=== PATIENT | male | born 1955 | race Caucasian/White ===

== ENCOUNTER 2017-05-14 09:18 | Emergency (ER) | payer OTHER ==
[~2017-05-14] VITALS: Ht 180.3 cm; Wt 111.2 kg
[2017-05-14 09:20] VITALS: BP 134/78; PULSE 61; RESP 18; TEMP 98.9; O2SAT 98
--- NOTE | 2017-05-14 09:38 | PD ---
HPI Chief Complaint: Medical Clearance Time Seen by Provider: 09:30 Travel History International Travel<30 days: No Contact w/Intl Traveler<30days: No Traveled to known affect area: No History of Present Illness HPI 61-year-old male is here for wound check. Patient status post defibrillator placement left upper chest 3 days ago. Patient was advised on discharge instruction removed Steri-Strip today. Patient denies any other problem. Patient has history of heart failure with reduced ejection fraction. Patient denies any chest pain or shortness of breath. Patient denies any fever chills. Surgery was done at the [facility] in [place]. [facility] Past Medical History Hx Anticoagulant Therapy: Yes Cardiovascular Problems: Yes Social History Tobacco Use: No Allergies-Medications (Allergen,Severity, Reaction): Coded Allergies: No Known Allergies (Verified Allergy, Unknown, 05/14/17) Review of Systems General / Constitutional: No: Fever Eyes: No: Visual changes HENT: No: Headaches Cardiovascular: No: Chest Pain or Discomfort Respiratory: No: Shortness of Breath Gastrointestinal: No: Abdominal Pain Genitourinary: No: Dysuria Musculoskeletal: No: Pain Skin: No Rash Neurologic: No: Weakness Psychiatric: No: Depression Endocrine: No: Polydipsia Hematologic/Lymphatic: No: Easy Bruising Physical Exam Narrative GENERAL: Well-nourished, well-developed patient. SKIN: Focused skin assessment warm/dry. HEAD: Normocephalic. EYES: No scleral icterus. No injection or drainage. NECK: Supple, trachea midline. No JVD or lymphadenopathy. CARDIOVASCULAR: Regular rate and rhythm without murmurs, gallops, or rubs. RESPIRATORY: Breath sounds equal bilaterally. No accessory muscle use. GASTROINTESTINAL: Abdomen soft, non-tender, nondistended. MUSCULOSKELETAL: No cyanosis, or edema. BACK: Nontender without obvious deformity. No CVA tenderness. Patient has Steri-Strips in place at the surgical wound for the defibrillator placement left upper chest. The wound is clean and dry. No discharge no bleeding. No evidence of infection. Data Data Last Documented VS Vital Signs Date Time Temp Pulse Resp B/P (MAP) Pulse Ox O2 Delivery O2 Flow Rate FiO2 05/14/17 09:58 05/14/17 09:20 98.9 61 18 98 Orders Orders Ed Discharge Order (05/14/17 09:38) MDM Medical Decision Making Medical Screen Exam Complete: Yes Emergency Medical Condition: Yes Differential Diagnosis Differential diagnosis including wound check. Narrative Course 61-year-old male is here for wound check. Status post defibrillator placement 3 days ago. The wounds healing appropriately. No evidence of infection. Steri -Strip in place. Advised patient to leave the Steri-Strips in place and follow- up with personal physician. Diagnosis Primary Impression: Visit for wound check Patient Instructions: General Instructions Additional Instructions: Keep the wound clean and dry. Follow-up with personal physician. Med/Other Pt SpecificInfo: No Change to Meds Disposition: 01 DISCHARGE HOME Condition: Stable Omar Blair MD May 14, 2017 09:38
== END 2017-05-14 10:00 | disposition home or self-care (01) ==
LOC: NEPD 09:18
DX: Z48.01 Encounter for change or removal of surgical wound dressing (principal); Z95.810 Presence of automatic (implantable) cardiac defibrillator; Z79.01 Long term (current) use of anticoagulants
CPT/HCPCS: 99281

== ENCOUNTER 2017-08-18 06:49 | Observation (INO) | payer OTHER ==
[~2017-08-18] VITALS: Ht 180.3 cm; Wt 101.0 kg
[2017-08-18 06:51] VITALS: BP 135/71; PULSE 81; RESP 22; TEMP 97.6; O2SAT 99
[2017-08-18 07:27] VITALS: PULSE 60; RESP 18; O2SAT 98
[2017-08-18 07:28] VITALS: BP 115/70; PULSE 75; RESP 18; O2SAT 98
[2017-08-18] MEDS ORDERED: SODIUM CHLOR 0.9% 1000 ML INJ 1,000 ML IV ONE (07:30)
[2017-08-18] MEDS ORDERED: SODIUM CHLORIDE 0.9% FLUSH 10 ML FLUSH IVF PRN (07:30)
[2017-08-18] MEDS ORDERED: DILTIAZEM HCL 25 MG/5 ML VIAL IV ONE (07:30)
[2017-08-18] MEDS ORDERED: methylPREDNISolone SOD SUCC 125 MG/2 ML VIAL IV PUSH ONE (07:30)
[2017-08-18] MEDS: RESP: ALBUTEROL 2.5 MG/IPRATROPIUM 0.5 MG NEB (SCH) INH (07:32)
[2017-08-18 07:58] LABS: BASOPHIL % 0.3 % (0.0-2.0); HEMATOCRIT 47.6 % (39.0-51.0); HEMOGLOBIN 16.4 GM/DL (13.0-17.0); LYMPH % 15.4 % (9.0-44.0); MEAN CELL VOLUME 92.5 FL (80.0-100.0); MEAN CORPUSCULAR HEMOGLOBIN 31.9 PG (27.0-34.0); MEAN CORPUSCULAR HGB CONC 34.5 % (32.0-36.0); MEAN PLATELET VOLUME 9.6 FL (7.0-11.0); MONO % 9.7 % (0.0-8.0); MONOCYTE # 0.6 TH/MM3 (0-0.9); NEUT % 74.6 % (16.0-70.0); PLATELET COUNT 197 TH/MM3 (150-450); RED BLOOD COUNT 5.15 MIL/MM3 (4.50-5.90); RED CELL DISTRIBUTION WIDTH 13.5 % (11.6-17.2); WHITE BLOOD COUNT 6.6 TH/MM3 (4.0-11.0)
--- NOTE | 2017-08-18 08:00 | PD ---
HPI Chief Complaint: Cold / Flu Symptoms Time Seen by Provider: 07:17 Travel History International Travel<30 days: No Contact w/Intl Traveler<30days: No Traveled to known affect area: No History of Present Illness HPI 62 y/o male notes she's been having cough, congestion, diarrhea and feeling short of breath over the past 2 days. He states he felt worse so he elected to come in. He feels worse when he moves around. He denies other specific modifying factors. He states he tried his breathing treatments without improvement. He states he is also feeling weak but denies any other concurrent complaints. Quality is productive. Severity is progressive. He denies specific sick contacts. PFSH Past Medical History Hx Anticoagulant Therapy: Yes (PRADAXA ) Atrial Fibrillation: Yes Cardiovascular Problems: Yes Congestive Heart Failure: Yes COPD: Yes Pneumonia: Yes Past Surgical History Abdominal Surgery: Yes (HERNIA) Pacemaker: Yes (DEFIB) Other Surgery: Yes (VOCAL CORDS) Social History Alcohol Use: Yes (RARE ) Tobacco Use: No Substance Use: No Allergies-Medications (Allergen,Severity, Reaction): Coded Allergies: No Known Allergies (Verified Allergy, Unknown, 08/18/17) Reported Meds & Prescriptions Reported Meds & Active Scripts Active Active Prescriptions or Reported Medications Unobtainable Review of Systems Except as stated in HPI: all other systems reviewed are Neg Physical Exam Narrative GENERAL: 62-year-old male who feel short of breath SKIN: Focused skin assessment warm/dry. HEAD: Atraumatic. Normocephalic. EYES: Pupils equal and round. No scleral icterus. No injection or drainage. ENT: Rhinorrhea noted. Mucous membranes pink and moist. NECK: Trachea midline. CARDIOVASCULAR: irregular rate and rhythm. RESPIRATORY: Decreased aeration bilaterally. GASTROINTESTINAL: Abdomen soft, non-tender, nondistended. MUSCULOSKELETAL: No obvious deformities. No clubbing. No cyanosis. No edema. NEUROLOGICAL: Awake and alert. No obvious cranial nerve deficits. Motor grossly within normal limits. Normal speech. Data Data Last Documented VS Vital Signs Date Time Temp Pulse Resp B/P (MAP) Pulse Ox O2 Delivery O2 Flow Rate FiO2 08/18/17 07:28 75 18 115/70 (85) 98 Room Air 08/18/17 06:51 97.6 Orders Orders Electrocardiogram (08/18/17 ) Complete Blood Count With Diff (08/18/17 07:22) Prothrombin Time / Inr (Pt) (08/18/17 07:22) Act Partial Throm Time (Ptt) (08/18/17 07:22) Lactic Acid Sepsis Protocol (08/18/17 07:22) Magnesium (Mg) (08/18/17 07:22) Influenzae A/B Antigen (08/18/17 07:22) Chest, Pa & Lat (08/18/17 07:22) Ecg Monitoring (08/18/17 07:22) Iv Access Insert/Monitor (08/18/17 07:22) Oximetry (08/18/17 07:22) Basic Metabolic Panel (Bmp) (08/18/17 07:22) B-Type Natriuretic Peptide (08/18/17 07:22) Sodium Chloride 0.9% Flush (Ns Flush) (08/18/17 07:30) Methylprednisolone So Succ Inj (Solumedr (08/18/17 07:30) Albuterol-Ipratropium Neb (Duoneb Neb) (08/18/17 07:30) Diltiazem Inj (Cardizem Inj) (08/18/17 07:30) Sodium Chlor 0.9% 1000 Ml Inj (Ns 1000 M (08/18/17 07:30) Blood Culture (08/18/17 07:22) Ckmb (Isoenzyme) Profile (08/18/17 07:26) Troponin I (08/18/17 07:26) CKMB (08/18/17 07:38) CKMB% (08/18/17 07:38) Oseltamivir (Tamiflu) (08/18/17 09:00) Admit Order (Ed Use Only) (08/18/17 09:27) Labs Laboratory Tests Test 08/18/17 07:38 White Blood Count 6.6 TH/MM3 Red Blood Count 5.15 MIL/MM3 Hemoglobin 16.4 GM/DL Hematocrit 47.6 % Mean Corpuscular Volume 92.5 FL Mean Corpuscular Hemoglobin 31.9 PG Mean Corpuscular Hemoglobin Concent 34.5 % Red Cell Distribution Width 13.5 % Platelet Count 197 TH/MM3 Mean Platelet Volume 9.6 FL Neutrophils (%) (Auto) 74.6 % Lymphocytes (%) (Auto) 15.4 % Monocytes (%) (Auto) 9.7 % Eosinophils (%) (Auto) 0.0 % Basophils (%) (Auto) 0.3 % Neutrophils # (Auto) 5.0 TH/MM3 Lymphocytes # (Auto) 1.0 TH/MM3 Monocytes # (Auto) 0.6 TH/MM3 Eosinophils # (Auto) 0.0 TH/MM3 Basophils # (Auto) 0.0 TH/MM3 CBC Comment DIFF FINAL Differential Comment Prothrombin Time 12.0 SEC Prothromb Time International Ratio 1.2 RATIO Activated Partial Thromboplast Time 47.4 SEC Blood Urea Nitrogen 13 MG/DL Creatinine 1.23 MG/DL Random Glucose 126 MG/DL Calcium Level 8.8 MG/DL Magnesium Level 1.8 MG/DL Sodium Level 135 MEQ/L Potassium Level 4.2 MEQ/L Chloride Level 102 MEQ/L Carbon Dioxide Level 20.8 MEQ/L Anion Gap 12 MEQ/L Estimat Glomerular Filtration Rate 60 ML/MIN Lactic Acid Level 1.9 mmol/L Total Creatine Kinase 296 U/L Creatine Kinase MB 1.5 NG/ML Troponin I LESS THAN 0.02 NG/ML B-Type Natriuretic Peptide 165 PG/ML MDM Medical Decision Making Medical Screen Exam Complete: Yes Emergency Medical Condition: Yes Medical Record Reviewed: Yes (past history confirmed) Interpretation(s) CBC & BMP Diagram 08/18/17 07:38 Calcium Level 8.8, Magnesium Level 1.8 Last 24 hours Impressions Chest X-Ray 08/18/17 0722 Signed Impressions: Service Date/Time: Friday, August 18, 2017 08:12 - CONCLUSION: No acute disease. Chris Esquivel MD flu A positive Differential Diagnosis COPD, pneumonia, influenza, anemia, A. fib with RVR..... Narrative Course Will check blood work, EKG, chest x-ray and dose with IV fluids and low-dose Cardizem given EKG with heart rate in the 140s Patient's heart rate improved after 1 small dose of Cardizem. Workup reveals influenza a and given duration of symptoms and comorbidities, he'll be given Tamiflu. He agrees to admission in the hospital for monitoring of his heart rate in symptoms. Physician Communication Physician Communication dr mckeon agrees to admit, requests 4 [place] [facility] Diagnosis Primary Impression: Influenza A Additional Impression: Atrial fibrillation with RVR Admitting Information Admitting Physician Requests: Observation Scripts Unable to Obtain Active Prescriptions or Reported Meds Juli Garcia MD 23, 2018 08:00
[2017-08-18 08:10] LABS: INTERNATIONAL NORMALIZED RATIO 1.2 RATIO
[2017-08-18 08:18] LABS: BICARBONATE 20.8 MEQ/L (21.0-32.0); CALCIUM 8.8 MG/DL (8.5-10.1); CREATININE 1.23 MG/DL (0.60-1.30); MAGNESIUM 1.8 MG/DL (1.5-2.5)
[2017-08-18 08:20] LABS: TROPONIN I LESS THAN 0.02 NG/ML (0.02-0.05)
--- NOTE | 2017-08-18 08:32 | RADRPT ---
EXAM DATE/TIME: 08/18/2017 08:12 [place] COMPARISON: No previous studies available for comparison. INDICATIONS : Chest tightness with shortness of breath, lightheaded, cough, and general weakness. MEDICAL HISTORY : Congestive heart failure. Lyme disease. Atrial fibrillation. Pneumonia. SURGICAL HISTORY : Pacemaker. ENCOUNTER: Initial ACUITY: 2 days PAIN SCORE: 0/10 LOCATION: Bilateral chest FINDINGS: PA and lateral views of the chest demonstrate the lungs to be symmetrically aerated without evidence of mass, infiltrate or effusion. There is a left-sided defibrillator with single intact lead. The car diomediastinal contours are unremarkable. Osseous structures are intact. CONCLUSION: No acute disease. Chris Esquivel MD on August 18, 2017 at 8:28 Board Certified Radiologist. This report was verified electronically.
[2017-08-18] MEDS ORDERED: OSELTAMIVIR PHOSPHATE 75 MG CAP PO ONE (09:00)
[2017-08-18] MEDS ORDERED: SENNOSIDES 8.6 MG TAB PO PRN (09:30)
[2017-08-18] MEDS ORDERED: NALOXONE HCL 0.4 MG/ML AMP IV PUSH PRN (09:30)
[2017-08-18] MEDS ORDERED: MAGNESIUM HYDROXIDE SUSP 30 ML CUP PO PRN (09:30)
[2017-08-18] MEDS ORDERED: BISACODYL 10 MG SUPP RECTAL PRN (09:30)
[2017-08-18] MEDS ORDERED: ONDANSETRON HCL 4 MG/2 ML VIAL IVP PRN (09:30)
[2017-08-18] MEDS ORDERED: LACTULOSE SYRUP 20 GM/30 ML CUP PO PRN (09:30)
[2017-08-18] MEDS ORDERED: SODIUM CHLORIDE 0.9% FLUSH 10 ML FLUSH IV FLUSH PRN (09:30)
[2017-08-18 13:05] VITALS: BP 134/62; PULSE 101; RESP 18; O2SAT 94
--- NOTE | 2017-08-18 17:17 | HHI.HP ---
HPI [facility] Primary Care Physician [facility] Admission Diagnosis influenza A, A. fib with RVR Diagnoses: Chief Complaint: cough, fever, myalgias Travel History International Travel<30 Days: No Contact w/Intl Traveler <30 Da: No Traveled to Known Affected Are: No History of Present Illness Written by Ermelinda Burnett, acting as scribe for Dr. Davila on 08/18/17 at 17:15. 62-year-old male with history of atrial fibrillation on Pradaxa, CHF unknown EF s/p AICD, COPD, presents with 2 day history of multiple complaints including cough, fevers/chills, myalgias, and palpitations. The patient reports over the past 2 days he has felt like he had the flu. He reports subjective fevers, chills, diaphoresis, and sweats. He has had nonproductive dry cough. He reports diarrhea all night long last night. He has not been able to eat in 3 days with lack of appetite. Denies nausea/vomiting or abdominal pain. Reports diffuse generalized weakness and myalgias. He reports palpitations and states his heart felt like it was pumping a lot harder than usual. Denies any specific chest pains or shortness of breath. He has felt faint and lightheaded, but denies any syncope. He has history of COPD, denies any recent wheezing. He states he wanted to come to the hospital earlier but he was too weak to drive yesterday. He did get his flu shot this year. Upon arrival to the ER, he was found to be influenza A positive. EKG showed afib with RVR HR 140s and he was given IV Cardizem 10mg x1 with good response. 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 Of note, patient does not have his medications with him and is unsure of his doses. He is able to recall that he takes metoprolol, Pradaxa, statin, "water pill", and is not sure of the rest of his medications. Review of Systems Except as stated in HPI: all other systems reviewed are Neg Past Family Social History Past Medical History atrial fibrillation on Pradaxa CHF unknown EF s/p AICD COPD hyperlipidemia Past Surgical History hernia repair AICD placement vocal cord surgery Reported Medications Patient does not have his medications with him and is unsure of his doses. He is able to recall that he takes metoprolol, Pradaxa, statin, "water pill", and is not sure of the rest of his medications. Allergies: Coded Allergies: No Known Allergies (Verified Allergy, Unknown, 08/18/17) Active Ordered Medications Current Medications Medications (Trade) Dose Ordered Sig/Tj Route Start Time Stop Time Status Last Admin (NS Flush) 2 ml UNSCH PRN IV FLUSH 08/18/17 09:30 (NS Flush) 2 ml BID IV FLUSH 08/18/17 21:00 (Zofran Inj) 4 mg Q6H PRN IVP 08/18/17 09:30 (Narcan Inj) 0.4 mg UNSCH PRN IV PUSH 08/18/17 09:30 (Diamond-Colace) 1 tab BID PO 08/18/17 21:00 (Milk Of Magnesia Liq) 30 ml Q12H PRN PO 08/18/17 09:30 (Senokot) 17.2 mg Q12H PRN PO 08/18/17 09:30 (Dulcolax Supp) 10 mg DAILY PRN RECTAL 08/18/17 09:30 (Lactulose Liq) 30 ml DAILY PRN PO 08/18/17 09:30 (Tamiflu) 75 mg BID PO 08/18/17 21:00 (Pradaxa) 150 mg BID PO 08/18/17 21:00 UNV Family History Mother with diabetes Father with lung cancer Social History Very rare alcohol use Denies any tobacco use Denies any illicit drug use 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 SKIN: Warm and dry. No rash. HEAD: Normocephalic. Atraumatic. EYES: Pupils equal and round. No scleral icterus. No injection or drainage. ENT: No nasal bleeding or discharge. Mucous membranes pink and moist. NECK: Supple. Trachea midline. CARDIOVASCULAR: Regular rate and rhythm. S1, S2 noted. No murmur appreciated. RESPIRATORY: No accessory muscle use. Slightly distant breath sounds otherwise clear to auscultation, no wheezing/crackles. Breath sounds equal bilaterally. GASTROINTESTINAL: Abdomen soft, non-tender, nondistended. Normoactive bowel sounds x4. MUSCULOSKELETAL: No obvious deformities. Extremities without clubbing, cyanosis , or edema. NEUROLOGICAL: Awake and alert. No obvious cranial nerve deficits. Motor grossly within normal limits. Normal speech. PSYCHIATRIC: Appropriate mood and affect; insight and judgment normal. Laboratory Laboratory Tests Test 08/18/17 07:38 White Blood Count 6.6 Red Blood Count 5.15 Hemoglobin 16.4 Hematocrit 47.6 Mean Corpuscular Volume 92.5 Mean Corpuscular Hemoglobin 31.9 Mean Corpuscular Hemoglobin Concent 34.5 Red Cell Distribution Width 13.5 Platelet Count 197 Mean Platelet Volume 9.6 Neutrophils (%) (Auto) 74.6 Lymphocytes (%) (Auto) 15.4 Monocytes (%) (Auto) 9.7 Eosinophils (%) (Auto) 0.0 Basophils (%) (Auto) 0.3 Neutrophils # (Auto) 5.0 Lymphocytes # (Auto) 1.0 Monocytes # (Auto) 0.6 Eosinophils # (Auto) 0.0 Basophils # (Auto) 0.0 CBC Comment DIFF FINAL Differential Comment Prothrombin Time 12.0 Prothromb Time International Ratio 1.2 Activated Partial Thromboplast Time 47.4 Blood Urea Nitrogen 13 Creatinine 1.23 Random Glucose 126 Calcium Level 8.8 Magnesium Level 1.8 Sodium Level 135 Potassium Level 4.2 Chloride Level 102 Carbon Dioxide Level 20.8 Anion Gap 12 Estimat Glomerular Filtration Rate 60 Lactic Acid Level 1.9 Total Creatine Kinase 296 Creatine Kinase MB 1.5 Troponin I LESS THAN 0.02 B-Type Natriuretic Peptide 165 Date/Time Source Procedure Growth Status 08/18/17 07:38 Blood Peripheral Aerobic Blood Culture Pending Received 08/18/17 07:38 Blood Peripheral Anaerobic Blood Culture Pending Received 08/18/17 07:38 Nasal Aspirate Influenza Types A,B Antigen (MELONIE) - Final Positive For Flu A Antigen Complete Result Diagram: 08/18/1773708/18/17737 Imaging Last Impressions Chest X-Ray 08/18/17721 Signed Impressions: Service Date/Time: Friday, August 18, 2017 08:12 - CONCLUSION: No acute disease. MD Sina York VTE Risk Assessment Sina VTE Risk Assessment: Mod/High Risk (score >= 2) Caprini Risk Assessment Model Point Value = 1 Point Value = 2 Point Value = 3 Point Value = 5 Age 41-60 Minor surgery BMI > 25 kg/m2 Swollen legs Varicose veins or History of unexplained or recurrent spontaneous Oral contraceptives or hormone replacement Sepsis (< 1 month) Serious lung disease, including pneumonia (< 1 month) Abnormal pulmonary function Acute myocardial infarction Congestive heart failure (< 1 month) History of inflammatory bowel disease Medical patient at bed rest Age 61-74 Arthroscopic surgery Major open surgery (> 45 min) Laparoscopic surgery (> 45 min) Malignancy Confined to bed (> 72 hours) Immobilizing plaster cast Central venous access Age >= 75 History of VTE Family history of VTE Factor V Leiden Prothrombin [id number] Lupus anticoagulant Anticardiolipin antibodies Elevated serum homocysteine Heparin-induced thrombocytopenia Other congenital or acquired thrombophilia Stroke (< 1 month) Elective arthroplasty Hip, pelvis, or leg fracture Acute spinal cord injury (< 1 month) Prophylaxis Regimen Total Risk Factor Score Risk Level Prophylaxis Regimen 0-1 Low Early ambulation 2 Moderate Order ONE of the following: *Sequential Compression Device (SCD) *Heparin 5000 units SQ BID 3-4 Higher Order ONE of the following medications: *Heparin 5000 units SQ TID *Enoxaparin/Lovenox 40 mg SQ daily (WT < 150 kg, CrCl > 30 mL/min) *Enoxaparin/Lovenox 30 mg SQ daily (WT < 150 kg, CrCl > 10-29 mL/min) *Enoxaparin/Lovenox 30 mg SQ BID (WT < 150 kg, CrCl > 30 mL/min) AND/OR *Sequential Compression Device (SCD) 5 or more Highest Order ONE of the following medications: *Heparin 5000 units SQ TID (Preferred with Epidurals) *Enoxaparin/Lovenox 40 mg SQ daily (WT < 150 kg, CrCl > 30 mL/min) *Enoxaparin/Lovenox 30 mg SQ daily (WT < 150 kg, CrCl > 10-29 mL/min) *Enoxaparin/Lovenox 30 mg SQ BID (WT < 150 kg, CrCl > 30 mL/min) AND *Sequential Compression Device (SCD) Assessment and Plan Problem List: (1) Influenza A ICD Code: J10.1 - Influenza due to other identified influenza virus with other respiratory manifestations Status: Acute (2) Atrial fibrillation with RVR ICD Code: I48.91 - Unspecified atrial fibrillation Status: Acute Assessment and Plan 62-year-old male with history of atrial fibrillation on Pradaxa, CHF unknown EF s/p AICD, COPD, presents with 2 day history of multiple complaints including cough, fevers/chills, myalgias, and palpitations. Upon arrival to the ER, he was found to be influenza A positive. EKG showed afib with RVR HR 140s and he was given IV Cardizem 10mg x1 with good response. 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 Of note, patient does not have his medications with him and is unsure of his doses. He is able to recall that he takes metoprolol, Pradaxa, statin, "water pill", and is not sure of the rest of his medications. Influenza A: patient with +cough, myalgias, congestion, subjective fevers/ chills. Influenza A positive. -Started on Tamiflu 75mg po bid x5days -Supportive treatment with Tylenol prn, Robitussin prn -Monitor CBC -Monitor for improvement Atrial Fibrillation with RVR: HR in 140 on EKG upon arrival. Likely exacerbated by flu. S/p IV Cardizem 10mg x1, with good response. -patient reportedly takes metoprolol at home, unknown dose, will start metoprolol 50mg bid for now with hold parameters -continue patient's Pradaxa 150mg bid -monitor on telemetry -check echocardiogram DENISE: Cr 1.2, unknown baseline. Likely component of dehydration with recent diarrhea and poor oral intake. -with hx of CHF, will hold off on IVF for now, encourage oral intake -avoid nephrotoxins -repeat BMP in am CHF: reported by patient, unknown EF however patient does have AICD. -will hold off on restarting diuretic, does not appear to be in fluid overload -continue BB -unknown if patient on CYNTHIA at home, however BP currently soft, consider starting CYNTHIA in next 1-2 days when renal function improves if BP stable -continue statin -monitor on telemetry -checking echo as above COPD: chronic, does not wear oxygen or have nebulizer at home. No wheezing on exam however patient felt much improved s/p duoneb. -duonebs q4h prn -O2 if needed DVT Prophylaxis: on Pradaxa This note was transcribed by maday Burnett. I, Dr. Prema Davila personally performed the history, physical exam, and medical decision making; and confirmed the accuracy of the information in the transcribed note. Authenticated by Dr. Prema Davila on 08/18/17 at 17:15. Code Status Full Code Discussed Condition With Patient, ER Ermelinda Flores PA-C Aug 18, 2017 17:17 Prema Davila MD Aug 19, 2017 17:59
[2017-08-18 18:00] VITALS: BP 123/67; PULSE 84; RESP 20; TEMP 97.4; O2SAT 96
[2017-08-18] MEDS ORDERED: DILTIAZEM HCL 30 MG TAB PO SCH (18:00)
[2017-08-18 18:43] LABS: TOTAL BILIRUBIN ADULT 0.9 MG/DL (0.2-1.0); TOTAL PROTEIN 8.3 GM/DL (6.4-8.2)
[2017-08-18 18:47] LABS: ALBUMIN 4.1 GM/DL (3.4-5.0); DIRECT BILIRUBIN ADULT 0.1 MG/DL (0.0-0.2); INDIRECT BILIRUBIN 0.8 MG/DL (0.0-0.8)
[2017-08-18 20:00] VITALS: BP 123/78; PULSE 138; PULSE 68; RESP 21; TEMP 97.6; O2SAT 97
[2017-08-18] MEDS: DABIGATRAN ETEXILATE 150 MG CAP PO SCH (20:20)
[2017-08-18] MEDS: guaiFENesin/DEXTROMETHORPHAN 200 MG/20 MG/10 ML CUP PO PRN (20:20)
[2017-08-18] MEDS: METOPROLOL TARTRATE 50 MG TAB PO SCH (20:20)
[2017-08-18] MEDS: ATORVASTATIN 20 MG TAB PO SCH (20:20)
[2017-08-18] MEDS: SODIUM CHLORIDE 0.9% FLUSH 10 ML FLUSH IV FLUSH SCH (20:21)
[2017-08-18] MEDS: DOCUSATE SODIUM 50 MG/SENNA 8.6 MG TAB PO SCH (20:21)
--- NOTE | 2017-08-18 20:32 | EKG ---
Date Performed: 08/18/2017 Time Performed: 07:08:58 PTAGE: 62 years EKG: ATRIAL FIBRILLATION WITH RAPID VENTRICULAR RESPONSE INDETERMINATE AXIS ABNORMAL ECG NO PREVIOUS TRACING DOCTOR: Reji Fajardo Interpretating Date/Time 08/18/2017 20:31:09
[2017-08-18] MEDS: RESP: ALBUTEROL 2.5 MG/IPRATROPIUM 0.5 MG NEB (PRN) NEB (20:37)
[2017-08-18] MEDS: OSELTAMIVIR PHOSPHATE 75 MG CAP PO SCH (22:38)
[2017-08-19] VITALS (7 sets, daily range): BP systolic 100–144; BP diastolic 68–84; PULSE 55–145; RESP 18–20; TEMP 97.4–98.3; O2SAT 95–97
[2017-08-19] MEDS: guaiFENesin/DEXTROMETHORPHAN 200 MG/20 MG/10 ML CUP PO PRN ×2 (00:20→09:52)
[2017-08-19] MEDS: RESP: ALBUTEROL 2.5 MG/IPRATROPIUM 0.5 MG NEB (PRN) NEB (00:46)
[2017-08-19] MEDS: DABIGATRAN ETEXILATE 150 MG CAP PO SCH ×2 (09:00→21:00)
[2017-08-19] MEDS: DOCUSATE SODIUM 50 MG/SENNA 8.6 MG TAB PO SCH ×2 (09:52→21:00)
[2017-08-19] MEDS: OSELTAMIVIR PHOSPHATE 75 MG CAP PO SCH ×2 (09:53→21:00)
[2017-08-19] MEDS: METOPROLOL TARTRATE 50 MG TAB PO SCH ×2 (09:53→21:00)
[2017-08-19] MEDS: SODIUM CHLORIDE 0.9% FLUSH 10 ML FLUSH IV FLUSH SCH ×2 (09:54→21:00)
[2017-08-19 10:05] LABS: AUTOMATED NEUTROPHIL # 8.5 TH/MM3 (1.8-7.7); BASOPHIL % 0.1 % (0.0-2.0); HEMATOCRIT 46.6 % (39.0-51.0); HEMOGLOBIN 16.1 GM/DL (13.0-17.0); LYMPH % 8.5 % (9.0-44.0); LYMPHOCYTE # 0.9 TH/MM3 (1.0-4.8); MEAN CELL VOLUME 92.6 FL (80.0-100.0); MEAN CORPUSCULAR HGB CONC 34.6 % (32.0-36.0); MONOCYTE # 0.7 TH/MM3 (0-0.9); NEUT % 84.4 % (16.0-70.0); PLATELET COUNT 193 TH/MM3 (150-450); RED BLOOD COUNT 5.04 MIL/MM3 (4.50-5.90); RED CELL DISTRIBUTION WIDTH 13.3 % (11.6-17.2)
[2017-08-19 10:23] LABS: BICARBONATE 19.9 MEQ/L (21.0-32.0); CALCIUM 8.9 MG/DL (8.5-10.1); CREATININE 0.97 MG/DL (0.60-1.30)
[2017-08-19 11:14] LABS: CHOLESTEROL/ HDL RATIO 3.77 RATIO
[2017-08-19] MEDS ORDERED: OSEL75 PO (12:33)
[2017-08-19] MEDS ORDERED: PRAD150C PO (12:33)
[2017-08-19] MEDS ORDERED: DEXT10SY2 PO (12:33)
[2017-08-19] MEDS ORDERED: METO-309 PO (12:33)
[2017-08-19] MEDS ORDERED: ATOR20TA15 PO (12:33)
--- NOTE | 2017-08-19 12:34 | HHI.DCPOC ---
Discharge Care Plan Diagnosis: (1) Influenza A (2) Atrial fibrillation with RVR Goals to Promote Your Health * To prevent worsening of your condition and complications * To maintain your health at the optimal level Directions to Meet Your Goals Take your medications as prescribed Follow your dietary instruction Follow activity as directed Keep your appointments as scheduled Take your immunizations and boosters as scheduled If your symptoms worsen call your PCP, if no PCP go to Urgent Care Center or Emergency Room Smoking is Dangerous to Your Health. Avoid second hand smoke Call the 24-hour hour crisis hotline for domestic abuse at Kevin Alaniz MD Aug 19, 2017 12:34
[2017-08-19] MEDS ORDERED: DILTIAZEM HCL 60 MG TAB PO ONE (12:45)
--- NOTE | 2017-08-19 12:48 | HHI.PR ---
Subjective Remarks Patient feels very tired and weak. Denies cp/sob. Feels palpitations Objective Vitals Vital Signs Date Time Temp Pulse Resp B/P (MAP) Pulse Ox O2 Delivery O2 Flow Rate FiO2 08/19/17 12:00 97.7 79 20 117/84 (95) 97 08/19/17 08:00 97.4 87 20 119/84 (96) 96 08/19/17 04:00 121 08/19/17 04:00 98.1 76 19 110/75 (87) 97 08/19/17 00:00 97.7 55 20 109/80 (90) 95 08/19/17 00:00 88 08/18/17 20:00 97.6 68 21 123/78 (93) 97 08/18/17 20:00 Room Air 08/18/17 20:00 138 08/18/17 18:00 97.4 84 20 123/67 (85) 96 08/18/17 17:35 08/18/17 13:05 101 18 134/62 (86) 94 Room Air I/O 08/18/17 08/18/17 08/18/17 08/19/17 08/19/17 08/19/17 07:00 15:00 23:00 07:00 15:00 23:00 Intake Total 1000 ml 480 ml Balance 1000 ml 480 ml Intake Oral 480 ml IV Total 1000 ml # Voids 2 Result Diagram: 08/19/17 0803 08/19/17 0803 Imaging Last Impressions Chest X-Ray 08/18/17 0722 Signed Impressions: Service Date/Time: Friday, August 18, 2017 08:12 - CONCLUSION: No acute disease. Chris Esquivel MD Objective Remarks AAOx3 nad s1S2 irregularly irregular, tachycardic, no MRG Clear lungs Bl no edema in extremities no JVD Medications and IVs Current Medications Medications (Trade) Dose Ordered Sig/Tj Route Start Time Stop Time Status Last Admin (NS Flush) 2 ml UNSCH PRN IV FLUSH 08/18/17 09:30 (NS Flush) 2 ml BID IV FLUSH 08/18/17 21:00 08/19/17 09:54 (Zofran Inj) 4 mg Q6H PRN IVP 08/18/17 09:30 (Narcan Inj) 0.4 mg UNSCH PRN IV PUSH 08/18/17 09:30 (Diamond-Colace) 1 tab BID PO 08/18/17 21:00 08/19/17 09:52 (Milk Of Magnesia Liq) 30 ml Q12H PRN PO 08/18/17 09:30 (Senokot) 17.2 mg Q12H PRN PO 08/18/17 09:30 (Dulcolax Supp) 10 mg DAILY PRN RECTAL 08/18/17 09:30 (Lactulose Liq) 30 ml DAILY PRN PO 08/18/17 09:30 (Tamiflu) 75 mg BID PO 08/18/17 21:00 08/19/17 09:53 (Pradaxa) 150 mg BID PO 08/18/17 21:00 08/19/17 09:00 (Robitussin Dm 200-20 Mg/10 ml Liq) 10 ml Q4H PRN PO 08/18/17 17:45 08/19/17 09:52 (Lopressor) 50 mg Q12HR PO 08/18/17 21:00 08/19/17 09:53 (Lipitor) 20 mg HS PO 08/18/17 21:00 08/18/17 20:20 (Duoneb Neb) 1 ampule Q4HR NEB PRN NEB 08/18/17 18:00 08/19/17 00:46 A/P Problem List: (1) Influenza A ICD Code: J10.1 - Influenza due to other identified influenza virus with other respiratory manifestations Status: Acute (2) Atrial fibrillation with RVR ICD Code: I48.91 - Unspecified atrial fibrillation Status: Acute Assessment and Plan 62-year-old male with history of atrial fibrillation on Pradaxa, CHF unknown EF s/p AICD, COPD, presents with 2 day history of multiple complaints including cough, fevers/chills, myalgias, and palpitations. Upon arrival to the ER, he was found to be influenza A positive. EKG showed afib with RVR HR 140s and he was given IV Cardizem 10mg x1 with good response. 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 Of note, patient does not have his medications with him and is unsure of his doses. He is able to recall that he takes metoprolol, Pradaxa, statin, "water pill", and is not sure of the rest of his medications. Influenza A: patient with +cough, myalgias, congestion, subjective fevers/ chills. Influenza A positive. -Supportive treatment with Tylenol prn, Robitussin prn -Monitor CBC -Monitor for improvement - 08/19 Continue Tamiflu for a total of 5 days. Supportive treatment as above. Atrial Fibrillation with RVR: HR in 140 on EKG upon arrival. Likely exacerbated by flu. S/p IV Cardizem 10mg x1, with good response. -continue patient's Pradaxa 150mg bid -monitor on telemetry -check echocardiogram -Troponin negative x1 -08/19 Patient still with A. fib with RVR with heart rate in the 150s. I will give 1 dose of 60 mg of p.o. Cardizem and start on Cardizem 30 mg p.o. every 6 hours. Consult cardiology. Check TSH and troponin. DENISE: Cr 1.2, unknown baseline. Likely component of dehydration with recent diarrhea and poor oral intake. -with hx of CHF, will hold off on IVF for now, encourage oral intake -avoid nephrotoxins -08/19 Creatinine down to 0.94. Likely DENISE which is resolving. Encourage po intake. CHF: reported by patient, unknown EF however patient does have AICD. -will hold off on restarting diuretic, does not appear to be in fluid overload -continue BB -unknown if patient on CYNTHIA at home, however BP currently soft, consider starting CYNTHIA in next 1-2 days when renal function improves if BP stable -continue statin -monitor on telemetry -checking echo as above COPD: chronic, does not wear oxygen or have nebulizer at home. No wheezing on exam however patient felt much improved s/p duoneb. -duonebs q4h prn -O2 if needed DVT Prophylaxis: on Pradaxa Discharge Planning Patient still with RVR. Cardio consulted. Kevin Alaniz MD Aug 19, 2017 12:48
[2017-08-19] MEDS: DILTIAZEM HCL 30 MG TAB PO SCH (17:40)
[2017-08-19 17:41] LABS: TROPONIN I LESS THAN 0.02 NG/ML (0.02-0.05)
[2017-08-19] MEDS: ATORVASTATIN 20 MG TAB PO SCH (21:00)
[2017-08-20] VITALS (7 sets, daily range): BP systolic 96–144; BP diastolic 56–83; PULSE 64–158; RESP 16–22; TEMP 97.6–98.3; O2SAT 93–96
[2017-08-20] MEDS: DILTIAZEM HCL 30 MG TAB PO SCH ×2 (06:13)
[2017-08-20] MEDS: DABIGATRAN ETEXILATE 150 MG CAP PO SCH ×2 (09:00→21:00)
[2017-08-20] MEDS: DOCUSATE SODIUM 50 MG/SENNA 8.6 MG TAB PO SCH ×2 (09:22→21:00)
[2017-08-20] MEDS: METOPROLOL TARTRATE 50 MG TAB PO SCH ×2 (09:22→21:12)
[2017-08-20] MEDS: OSELTAMIVIR PHOSPHATE 75 MG CAP PO SCH ×2 (09:23→21:12)
[2017-08-20] MEDS: guaiFENesin/DEXTROMETHORPHAN 200 MG/20 MG/10 ML CUP PO PRN ×2 (09:23→21:15)
[2017-08-20] MEDS: SODIUM CHLORIDE 0.9% FLUSH 10 ML FLUSH IV FLUSH SCH ×2 (09:25→21:11)
[2017-08-20] MEDS ORDERED: DILTIAZEM HCL 30 MG TAB PO ONE (10:15)
[2017-08-20] MEDS: RESP: ALBUTEROL 2.5 MG/IPRATROPIUM 0.5 MG NEB (PRN) NEB (10:21)
--- NOTE | 2017-08-20 11:07 | MB ---
cc: Antoine Rich MD DATE: 08/20/2017 REASON FOR CONSULTATION: Mild rapid atrial fibrillation. HISTORY OF PRESENT ILLNESS: The patient is a very pleasant 62-year-old gentleman with complex cardiac history including chronic atrial fibrillation, maintained on Pradaxa, as well as CHF and cardiomyopathy with AICD placement, and COPD, who presented with cough and shortness of breath and was found to be flu positive. Other than his coughing, he is feeling quite well, but his atrial fibrillation has been more difficult to control than usual and when he ambulates his heart rate increases and I have been asked to assist. He actually is hoping to be discharged home soon and is only complaining of his coughing. PAST MEDICAL HISTORY: Atrial fibrillation on Pradaxa, CHF, AICD, COPD, and hyperlipidemia,. CURRENT MEDICATIONS: 1. Cardizem 60 mg p.o. q.6 hours. 2. Lopressor 50 mg q.12 hours. 3. Pradaxa 150 mg b.i.d. 4. Tamiflu. ALLERGIES: NO KNOWN DRUG ALLERGIES. PHYSICAL EXAMINATION: VITAL SIGNS: Afebrile, heart rate 110, respiratory rate 18, blood pressure 112/70, sating 94 on room air. GENERAL: Pleasant, well-appearing gentleman in no distress. NECK: No JVD. LUNGS: Clear to auscultation bilaterally. CARDIOVASCULAR: Irregularly, irregular rhythm with a slightly rapid rate. No murmurs appreciated. ABDOMEN: Benign. EXTREMITIES: No edema. LABORATORY DATA: White count 10.0, hematocrit 46.6, platelets 193. Sodium 140, potassium 4.1, chloride 107, bicarbonate 19.9, BUN 20, creatinine 0.97. Cardiac enzymes are negative x 2. DIAGNOSTIC STUDIES: EKG showed atrial fibrillation with rapid ventricular response. Current telemetry shows slightly rapid atrial fibrillation. ASSESSMENT AND PLAN: Atrial fibrillation with rapid ventricular response. The patient who is positive for flu has more difficult to control atrial fibrillation that he says is usual for him. This is likely caused by the fluid itself and I will increase his Cardizem to 360 mg daily in the long-acting form. He is already anticoagulated with Pradaxa. Otherwise, he is only minimally symptomatic and this seems to be explained by the flu itself and not due to a congestive heart failure exacerbation. Indeed, his BNP was essentially normal at 165 this admission. Otherwise, he is well controlled on his current medical regimen and I would not have any other suggestions at this time. Thus, I will sign off and be available as needed. Please call with any questions. Thank you again for the opportunity to participate in this patient's care. MD CURT Ng/JORGE , 10:29 AM , 11:06 AM
[2017-08-20] MEDS: DILTIAZEM-CD 180 MG CAP ER PO SCH (11:21)
[2017-08-20 11:43] LABS: HEMOGLOBIN A1C 6.2 % (4.3-6.0)
[2017-08-20] MEDS ORDERED: DILTIAZEM HCL 30 MG TAB PO SCH (12:00)
--- NOTE | 2017-08-20 12:50 | HHI.PR ---
Subjective Remarks hoping to be discharged home denies cp/sob heart rate is going up when he ambulates. Afebrile Objective Vitals Vital Signs Date Time Temp Pulse Resp B/P (MAP) Pulse Ox O2 Delivery O2 Flow Rate FiO2 08/20/17 12:00 97.9 85 18 132/67 (88) 95 08/20/17 08:10 158 08/20/17 08:00 97.6 88 18 112/70 (84) 94 08/20/17 04:00 91 08/20/17 04:00 98.3 64 16 108/58 (75) 93 08/20/17 04:00 Bi-Pap 08/20/17 00:00 98.2 81 16 96/56 (69) 95 08/20/17 00:00 97 08/19/17 20:40 Room Air 08/19/17 20:00 123 08/19/17 20:00 97.7 76 18 144/68 (93) 96 08/19/17 16:00 98.3 77 20 100/71 (81) 96 08/19/17 16:00 91 I/O 08/19/17 08/19/17 08/19/17 08/20/17 08/20/17 08/20/17 07:00 15:00 23:00 07:00 15:00 23:00 Intake Total 480 ml 1080 ml Balance 480 ml 1080 ml Intake Oral 480 ml 1080 ml # Voids 2 4 2 # Bowel Movements 3 Result Diagram: 08/19/17 0803 08/19/17 0803 Imaging Last Impressions Chest X-Ray 08/18/17 0722 Signed Impressions: Service Date/Time: Friday, August 18, 2017 08:12 - CONCLUSION: No acute disease. Chris Esquivel MD Objective Remarks AAOx3 nad s1S2 irregularly irregular, tachycardic, no MRG Clear lungs Bl no edema in extremities no JVD Medications and IVs Current Medications Medications (Trade) Dose Ordered Sig/Tj Route Start Time Stop Time Status Last Admin (NS Flush) 2 ml UNSCH PRN IV FLUSH 08/18/17 09:30 (NS Flush) 2 ml BID IV FLUSH 08/18/17 21:00 08/20/17 09:25 (Zofran Inj) 4 mg Q6H PRN IVP 08/18/17 09:30 (Narcan Inj) 0.4 mg UNSCH PRN IV PUSH 08/18/17 09:30 (Diamond-Colace) 1 tab BID PO 08/18/17 21:00 08/20/17 09:22 (Milk Of Magnesia Liq) 30 ml Q12H PRN PO 08/18/17 09:30 (Senokot) 17.2 mg Q12H PRN PO 08/18/17 09:30 (Dulcolax Supp) 10 mg DAILY PRN RECTAL 08/18/17 09:30 (Lactulose Liq) 30 ml DAILY PRN PO 08/18/17 09:30 (Tamiflu) 75 mg BID PO 08/18/17 21:00 08/20/17 09:23 (Pradaxa) 150 mg BID PO 08/18/17 21:00 08/20/17 09:00 (Robitussin Dm 200-20 Mg/10 ml Liq) 10 ml Q4H PRN PO 08/18/17 17:45 08/20/17 09:23 (Lopressor) 50 mg Q12HR PO 08/18/17 21:00 08/20/17 09:22 (Lipitor) 20 mg HS PO 08/18/17 21:00 08/19/17 21:00 (Duoneb Neb) 1 ampule Q4HR NEB PRN NEB 08/18/17 18:00 08/20/17 10:21 (Cardizem Cd) 360 mg DAILY PO 08/20/17 10:30 08/20/17 11:21 A/P Problem List: (1) Influenza A ICD Code: J10.1 - Influenza due to other identified influenza virus with other respiratory manifestations Status: Acute (2) Atrial fibrillation with RVR ICD Code: I48.91 - Unspecified atrial fibrillation Status: Acute Assessment and Plan 62-year-old male with history of atrial fibrillation on Pradaxa, CHF unknown EF s/p AICD, COPD, presents with 2 day history of multiple complaints including cough, fevers/chills, myalgias, and palpitations. Upon arrival to the ER, he was found to be influenza A positive. EKG showed afib with RVR HR 140s and he was given IV Cardizem 10mg x1 with good response. 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 Of note, patient does not have his medications with him and is unsure of his doses. He is able to recall that he takes metoprolol, Pradaxa, statin, "water pill", and is not sure of the rest of his medications. Influenza A: patient with +cough, myalgias, congestion, subjective fevers/ chills. Influenza A positive. -Supportive treatment with Tylenol prn, Robitussin prn -Monitor CBC -Monitor for improvement - 08/19 Continue Tamiflu for a total of 5 days. Supportive treatment as above. Atrial Fibrillation with RVR: HR in 140 on EKG upon arrival. Likely exacerbated by flu. S/p IV Cardizem 10mg x1, with good response. -continue patient's Pradaxa 150mg bid -monitor on telemetry -check echocardiogram -Troponin negative x1 -08/19 Patient still with A. fib with RVR with heart rate in the 150s. I will give 1 dose of 60 mg of p.o. Cardizem and start on Cardizem 30 mg p.o. every 6 hours. Consult cardiology. Check TSH and troponin. -08/20 Heart rate well controlled at rest, however goes up to 150 bpm when patient exercises. Cardiology recommended long acting Cardizem 360 mg po daily. Continue to monitor in telemetry. DENISE: Cr 1.2, unknown baseline. Likely component of dehydration with recent diarrhea and poor oral intake. -with hx of CHF, will hold off on IVF for now, encourage oral intake -avoid nephrotoxins -08/19 Creatinine down to 0.94. Likely DENISE which is resolving. Encourage po intake. CHF: reported by patient, unknown EF however patient does have AICD. -will hold off on restarting diuretic, does not appear to be in fluid overload -continue BB -unknown if patient on CYNTHIA at home, however BP currently soft, consider starting CYNTHIA in next 1-2 days when renal function improves if BP stable -continue statin -monitor on telemetry COPD: chronic, does not wear oxygen or have nebulizer at home. No wheezing on exam however patient felt much improved s/p duoneb. -duonebs q4h prn -O2 if needed DVT Prophylaxis: on Pradaxa Discharge Planning Possible Dc in am pending stabilization of heart rate. Kevin Alaniz MD Aug 20, 2017 12:50
[2017-08-20 17:49] LABS: AUTOMATED NEUTROPHIL # 8.1 TH/MM3 (1.8-7.7); BASOPHIL % 0.1 % (0.0-2.0); HEMOGLOBIN 15.4 GM/DL (13.0-17.0); LYMPH % 12.4 % (9.0-44.0); LYMPHOCYTE # 1.3 TH/MM3 (1.0-4.8); MEAN CELL VOLUME 91.1 FL (80.0-100.0); MEAN CORPUSCULAR HEMOGLOBIN 31.8 PG (27.0-34.0); MEAN PLATELET VOLUME 9.8 FL (7.0-11.0); MONO % 8.7 % (0.0-8.0); MONOCYTE # 0.9 TH/MM3 (0-0.9); NEUT % 78.8 % (16.0-70.0); PLATELET COUNT 190 TH/MM3 (150-450); RED BLOOD COUNT 4.82 MIL/MM3 (4.50-5.90); RED CELL DISTRIBUTION WIDTH 13.3 % (11.6-17.2); WHITE BLOOD COUNT 10.2 TH/MM3 (4.0-11.0)
[2017-08-20 18:17] LABS: ALBUMIN 3.5 GM/DL (3.4-5.0); AST (GOT) 24 U/L (15-37); BICARBONATE 25.2 MEQ/L (21.0-32.0); BLOOD UREA NITROGEN 20 MG/DL (7-18); CALCIUM 8.3 MG/DL (8.5-10.1); CHLORIDE 101 MEQ/L (98-107); CREATININE 1.02 MG/DL (0.60-1.30); GLOMERULAR FILTRATION RATE 74 ML/MIN (>89); GLUCOSE,RANDOM 91 MG/DL (74-106); MAGNESIUM 1.8 MG/DL (1.5-2.5); SODIUM (NA) 135 MEQ/L (136-145)
[2017-08-20 18:19] LABS: ALT (GPT) 35 U/L (12-78); PHOSPHORUS 3.1 MG/DL (2.5-4.9)
[2017-08-20 18:20] LABS: ALKALINE PHOSPHATASE 72 U/L (45-117); TOTAL BILIRUBIN ADULT 1.1 MG/DL (0.2-1.0)
[2017-08-20] MEDS: ATORVASTATIN 20 MG TAB PO SCH (21:12)
[2017-08-21] VITALS: BP 100/58; PULSE 72; PULSE 84; RESP 18; TEMP 99; O2SAT 93
[2017-08-21 04:00] VITALS: PULSE 83
[2017-08-21 04:10] VITALS: BP 111/77; PULSE 74; RESP 18; TEMP 99.4; O2SAT 97
[2017-08-21 05:43] LABS: ALBUMIN 3.4 GM/DL (3.4-5.0); ALKALINE PHOSPHATASE 70 U/L (45-117); ALT (GPT) 30 U/L (12-78); AST (GOT) 20 U/L (15-37); BICARBONATE 24.3 MEQ/L (21.0-32.0); BLOOD UREA NITROGEN 16 MG/DL (7-18); CALCIUM 8.7 MG/DL (8.5-10.1); CHLORIDE 103 MEQ/L (98-107); CREATININE 0.89 MG/DL (0.60-1.30); GLOMERULAR FILTRATION RATE 87 ML/MIN (>89); GLUCOSE,RANDOM 108 MG/DL (74-106); SODIUM (NA) 136 MEQ/L (136-145); TOTAL BILIRUBIN ADULT 1.7 MG/DL (0.2-1.0)
[2017-08-21 05:56] LABS: AUTOMATED NEUTROPHIL # 7.6 TH/MM3 (1.8-7.7); BASOPHIL % 0.1 % (0.0-2.0); HEMATOCRIT 43.5 % (39.0-51.0); HEMOGLOBIN 15.3 GM/DL (13.0-17.0); LYMPH % 15.3 % (9.0-44.0); LYMPHOCYTE # 1.6 TH/MM3 (1.0-4.8); MEAN CELL VOLUME 90.5 FL (80.0-100.0); MEAN CORPUSCULAR HEMOGLOBIN 31.8 PG (27.0-34.0); MEAN CORPUSCULAR HGB CONC 35.1 % (32.0-36.0); MEAN PLATELET VOLUME 10.3 FL (7.0-11.0); MONO % 9.8 % (0.0-8.0); NEUT % 74.8 % (16.0-70.0); PLATELET COUNT 177 TH/MM3 (150-450); RED BLOOD COUNT 4.81 MIL/MM3 (4.50-5.90); RED CELL DISTRIBUTION WIDTH 13.1 % (11.6-17.2); WHITE BLOOD COUNT 10.2 TH/MM3 (4.0-11.0)
[2017-08-21 08:00] VITALS: BP 116/72; PULSE 123; PULSE 94; RESP 20; TEMP 98.4; O2SAT 94
[2017-08-21] MEDS: METOPROLOL TARTRATE 50 MG TAB PO SCH (08:37)
[2017-08-21] MEDS: DILTIAZEM-CD 180 MG CAP ER PO SCH (08:37)
[2017-08-21] MEDS: OSELTAMIVIR PHOSPHATE 75 MG CAP PO SCH (08:38)
[2017-08-21] MEDS: DOCUSATE SODIUM 50 MG/SENNA 8.6 MG TAB PO SCH (08:38)
[2017-08-21] MEDS: DABIGATRAN ETEXILATE 150 MG CAP PO SCH (08:38)
[2017-08-21] MEDS: SODIUM CHLORIDE 0.9% FLUSH 10 ML FLUSH IV FLUSH SCH (08:39)
[2017-08-21] MEDS ORDERED: METO-309 PO (11:06)
[2017-08-21] MEDS ORDERED: CARD180C5 PO (11:06)
--- NOTE | 2017-08-21 11:12 | HHI.DS ---
Discharge Summary Admission Date Aug 18, 2017 at 09:28 Discharge Date: Aug 21, 2017 Admitting Diagnosis influenza A, A. fib with RVR (1) Influenza A ICD Code: J10.1 - Influenza due to other identified influenza virus with other respiratory manifestations Diagnosis: Principal Status: Acute (2) Atrial fibrillation with RVR ICD Code: I48.91 - Unspecified atrial fibrillation Diagnosis: Principal Status: Resolved (3) DENISE (acute kidney injury) ICD Code: N17.9 - Acute kidney failure, unspecified Diagnosis: Principal Status: Resolved (4) COPD (chronic obstructive pulmonary disease) ICD Code: J44.9 - Chronic obstructive pulmonary disease, unspecified Diagnosis: Secondary Status: Chronic (5) Prediabetes ICD Code: R73.03 - Prediabetes Diagnosis: Principal Status: Acute Procedures none Brief History - From Admission Written by Ermelinda Burnett, acting as scribe for Dr. Davila on 08/18/17 at 17:15. 62-year-old male with history of atrial fibrillation on Pradaxa, CHF unknown EF s/p AICD, COPD, presents with 2 day history of multiple complaints including cough, fevers/chills, myalgias, and palpitations. The patient reports over the past 2 days he has felt like he had the flu. He reports subjective fevers, chills, diaphoresis, and sweats. He has had nonproductive dry cough. He reports diarrhea all night long last night. He has not been able to eat in 3 days with lack of appetite. Denies nausea/vomiting or abdominal pain. Reports diffuse generalized weakness and myalgias. He reports palpitations and states his heart felt like it was pumping a lot harder than usual. Denies any specific chest pains or shortness of breath. He has felt faint and lightheaded, but denies any syncope. He has history of COPD, denies any recent wheezing. He states he wanted to come to the hospital earlier but he was too weak to drive yesterday. He did get his flu shot this year. Upon arrival to the ER, he was found to be influenza A positive. EKG showed afib with RVR HR 140s and he was given IV Cardizem 10mg x1 with good response. 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 Of note, patient does not have his medications with him and is unsure of his doses. He is able to recall that he takes metoprolol, Pradaxa, statin, "water pill", and is not sure of the rest of his medications. CBC/BMP: 08/21/17 0400 08/21/17 0400 Significant Findings Laboratory Tests Test 08/19/17 08:03 08/19/17 16:31 08/20/17 17:25 08/21/17 04:00 Neutrophils (%) (Auto) 84.4 % (16.0-70.0) 78.8 % (16.0-70.0) 74.8 % (16.0-70.0) Lymphocytes (%) (Auto) 8.5 % (9.0-44.0) Neutrophils # (Auto) 8.5 TH/MM3 (1.8-7.7) 8.1 TH/MM3 (1.8-7.7) Lymphocytes # (Auto) 0.9 TH/MM3 (1.0-4.8) Blood Urea Nitrogen 20 MG/DL (7-18) 20 MG/DL (7-18) Random Glucose 139 MG/DL (74-106) 108 MG/DL (74-106) Carbon Dioxide Level 19.9 MEQ/L (21.0-32.0) Estimat Glomerular Filtration Rate 79 ML/MIN (>89) 74 ML/MIN (>89) 87 ML/MIN (>89) HDL Cholesterol 36.0 MG/DL (40.0-60.0) Hemoglobin A1c 6.2 % (4.3-6.0) Troponin I LESS THAN 0.02 NG/ML Monocytes (%) (Auto) 8.7 % (0.0-8.0) 9.8 % (0.0-8.0) Calcium Level 8.3 MG/DL (8.5-10.1) Total Bilirubin 1.1 MG/DL (0.2-1.0) 1.7 MG/DL (0.2-1.0) Sodium Level 135 MEQ/L (136-145) Monocytes # (Auto) 1.0 TH/MM3 (0-0.9) Imaging Last Impressions Chest X-Ray 08/18/17 0722 Signed Impressions: Service Date/Time: Friday, August 18, 2017 08:12 - CONCLUSION: No acute disease. Chris Esquivel MD PE at Discharge AAOx3 nad s1S2 irregularly irregular, tachycardic, no MRG Clear lungs Bl no edema in extremities no JVD Pt update on day of discharge Denies chest pain or shortness of breath. Patient also denies palpitations or dizziness. Patient is eager to be discharged home. Hospital Course Patient was admitted to the medical floor. Treated with Tamiflu for a total of 5 days, supportive treatment with Tylenol as needed, Robitussin as needed. CBC was monitored. Patient improved symptomatically. Patient also was found to have A. fib with RVR. Was given Cardizem IV 1 with good response. Patient's Pradaxa was continued, monitored on telemetry, troponin was negative 2. Urology was consulted to help with A. fib with RVR especially when the patient had some exertion. The patient initially was started on p.o. Cardizem 30 mg p.o. every 6 hours, however patient heart rate still was going up on exertion. Cardiology recommended increasing the dose to 360 mg p.o. daily. This was able to better controlled heart rate. Patient also was found to have acute kidney injury with a creatinine of 1.2 with an unknown baseline on admission. Diuretics with the patient was taken at home were held. Creatinine trended down with IV fluids. Oral intake of fluids was encouraged during hospitalization as well. It was noted that the patient's blood sugars were elevated. Hemoglobin A1c was obtained and 6.2. Patient is prediabetic. This was communicated to the patient who states that he he will follow-up with his primary care physician. I started the patient on metformin upon discharge. Pt Condition on Discharge: Stable Discharge Disposition: Discharge Home Discharge Time: <= 30 minutes Discharge Instructions DIET: Follow Instructions for: Heart Healthy Diet Activities you can perform: Regular-No Restrictions Activities to Avoid: Prolonged Standing, Strenuous Activity Follow up Referrals: PCP Follow-up - 2 Weeks New Medications: Atorvastatin (Atorvastatin) 20 Mg Tab 20 MG PO HS for Cholesterol Management, #30 TAB Dabigatran (Pradaxa) 150 Mg Cap 150 MG PO BID for Blood Clot Prevention, #60 CAP Dextromethorphan-Guaifenesin (Dextromethorphan/Guaifene 10-100 mg/5Ml) 100 Mg- 10 Mg/5 Ml Syp 10 ML PO Q4H PRN for COUGH, #1 BOTTLE Diltiazem CD 24 HR (Cardizem CD 24 HR) 180 Mg Caper 360 MG PO DAILY for heart rate control, #31 CAP Metoprolol Tartrate (Lopressor) 50 Mg Tab 50 MG PO Q12HR for Blood Pressure Management, #62 TAB Oseltamivir (Tamiflu) 75 Mg Cap 75 MG PO BID for Infection, #8 CAP Kevin Alaniz MD Aug 21, 2017 11:11
[2017-08-21 12:00] VITALS: BP 117/59; PULSE 84; PULSE 91; RESP 20; TEMP 98; O2SAT 91
[2017-08-21] MEDS ORDERED: METF500T PO (12:48)
[2017-08-21] MEDS ORDERED: OSEL75 PO (12:48)
--- NOTE | 2017-08-21 13:10 | ECHRPT ---
Indication: ATRIAL FIB CONCLUSIONS The left ventricular systolic function is normal with an estimated ejection fraction in the range of 55-60%. Normal left ventricular size. Wall thickness is measured at the upper limits of normal. No regional wall motion abnormalities are present. A pacemaker wire is noted. The right atrial size is mildly dilated. The pulmonary valve is not well visualized. TECHNICALLY DIFFUCULT STUDY DUE TO POOR ACOUSTIC WINDOWS BP: 119 / 84 HR: 96 Rhythm: Atrial fibrillation MEASUREMENTS (Male / Female) Normal Values Technical Quality:Fair 2D ECHO LV Diastolic Diameter PLAX 5.6 cm 4.2 - 5.9 / 3.9 - 5.3 cm LV Systolic Diameter PLAX 3.9 cm IVS Diastolic Thickness 1.2 cm 0.6 - 1.0 / 0.6 - 0.9 cm LVPW Diastolic Thickness 1.2 cm 0.6 - 1.0 / 0.6 - 0.9 cm LV Relative Wall Thickness 0.4 LVOT Diameter 2.0 cm LA Systolic Diameter LX 4.6 cm 3.0 - 4.0 / 2.7 - 3.8 cm LV Ejection Fraction MOD 4C 57.6 % LV Cardiac Index MOD 4C 2916.6 cm/minm LV Ejection Fraction 4C AL 57.6 % LV Cardiac Index 4C AL 3022.7 cm/minm M-MODE Aortic Root Diameter MM 3.3 cm LA Systolic Diameter MM 4.6 cm LA Ao Ratio MM 1.4 AV Cusp Separation MM 2.2 cm DOPPLER AV Peak Velocity 105.0 cm/s AV Peak Gradient 4.4 mmHg LVOT Peak Velocity 85.9 cm/s LVOT Peak Gradient 3.0 mmHg AV Area Cont Eq pk 2.6 cm MV Area PHT 4.2 cm LV E' Lateral Velocity 6.6 cm/s LV E' Septal Velocity 7.1 cm/s PV Peak Velocity 80.1 cm/s PV Peak Gradient 2.6 mmHg FINDINGS LEFT VENTRICLE The left ventricular systolic function is normal with an estimated ejection fraction in the range of 55-60%. Normal left ventricular size. Wall thickness is measured at the upper limits of normal. No regional wall motion abnormalities are present. RIGHT VENTRICLE A pacemaker wire is noted. LEFT ATRIUM The left atrial size is normal. RIGHT ATRIUM The right atrial size is mildly dilated. ATRIAL SEPTUM Normal atrial septal thickness without atrial level shunting by limited color doppler interrogation. AORTA The aortic root and proximal ascending aorta are normal in size on limited imaging. MITRAL VALVE Structurally normal mitral valve. No mitral valve stenosis or regurgitation. AORTIC VALVE Trileaflet aortic valve. No aortic valve stenosis or regurgitation. TRICUSPID VALVE Structurally normal tricuspid valve. No tricuspid valve stenosis or regurgitation. PULMONARY VALVE The pulmonary valve is not well visualized. VESSELS The inferior vena cava is normal in size. PERICARDIUM No pericardial effusion. Mio Alamo MD, FACC (Electronically Signed) Final Date:21 August 2017 13:08
[2017-08-21 16:00] VITALS: BP 108/66; PULSE 77; RESP 20; TEMP 97.6; O2SAT 95
== END 2017-08-21 18:10 | disposition home or self-care (01) ==
LOC: NEPC 06:49 → NEDA 09:28 → NEDH 12:25 → N04A 17:35
PROVIDERS: ADMIT Hospitalist; ATTEND Hospitalist
DX: J10.1 Influenza due to other identified influenza virus with other respiratory manifestations (principal); I48.2 Chronic atrial fibrillation; I50.9 Heart failure, unspecified; E78.5 Hyperlipidemia, unspecified; J44.9 Chronic obstructive pulmonary disease, unspecified; N17.9 Acute kidney failure, unspecified; R73.03 Prediabetes; Z79.01 Long term (current) use of anticoagulants; Z95.810 Presence of automatic (implantable) cardiac defibrillator
CPT/HCPCS: 71046; 80048; 80053; 80061; 80076; 82550; 82552; 83036; 83605; 83735; 83880; 84100; 84443; 84484; 85025; 85610; 85730; 87040; 87804; 93005; 93306; 94640; 94664; 97161; 99285; G0378; J2930; J7030